=== PATIENT | female | born 1970 | race African-American/Black ===

== ENCOUNTER 2022-08-28 09:55 | Outpatient (CLI) | payer BC | END 2022-08-28 09:56 | disposition home or self-care (01) | LOC: CSHMAMMO 09:55 | PROVIDERS: ATTEND Family Medicine | DX: Z12.31 Encounter for screening mammogram for malignant neoplasm of breast (principal); Z80.3 Family history of malignant neoplasm of breast | CPT/HCPCS: 77063; 77067 ==

== ENCOUNTER 2023-03-07 08:53 | Outpatient (CLI) | payer BC | END 2023-03-07 08:54 | disposition home or self-care (01) | LOC: CSHMAMMO 08:53 | PROVIDERS: ATTEND Family Medicine | DX: R92.8 Other abnormal and inconclusive findings on diagnostic imaging of breast (principal); D24.1 Benign neoplasm of right breast | CPT/HCPCS: G0279 ==